=== PATIENT | female | born 1985 | race Caucasian/White ===

== ENCOUNTER 2022-09-28 14:37 | Emergency (ER) | payer BC ==
[2022-09-28 15:31] LABS: Urine Blood Trace-intact (Negative); Urine Glucose Negative (Negative); Urine Protein Negative (Negative); Urine Specific Gravity 1.025 (1.005-1.030); Urine pH 5.5 (5.0-7.0)
[2022-09-28] MEDS ORDERED: NA CHLORIDE 0.9% 1,000 ML ONE (15:33)
[2022-09-28 15:34] LABS: Absolute Lymphocytes (CBC) 2.5 K/uL (0.7-4.9); Hematocrit 37.3 % (36.0-45.0); Lymphocytes % 22.4 % (15.3-44.8); MCV 93.6 fL (80-100); MPV 8.7 fL (7.6-11.3); RBC Red Blood Cell Count 3.99 M/uL (3.86-4.86)
[2022-09-28 15:46] LABS: Albumin 4.3 g/dL (3.4-5.0); Bilirubin Total 0.4 mg/dL (0.2-1.0); Potassium 3.9 mmol/L (3.5-5.1); Protein, Total 7.4 g/dL (6.4-8.2)
[2022-09-28 15:46] LABS: Urine Bacteria None Seen /HPF (<20); Urine Mucus Slight /HPF (None Seen); Urine RBC <5 /HPF (None Seen)
--- NOTE | 2022-09-28 16:58 | RAD REPORT ---
EXAM DESCRIPTION: US - Abdomen Exam Limited - 09/28/2022 4:19 pm CLINICAL HISTORY: ABD PAIN COMPARISON: ABDOMINAL EXAM LIMITED dated 07/21/2008 FINDINGS: No gallstones, sludge or other abnormalities within the gallbladder lumen. Partially fille d gallbladder shows no wall thickening or pericholecystic fluid. No common duct stone or biliary tree dilatation identified. Mild dilatation of the right renal pelvis is seen in the partially evaluated kidney. IMPRESSION: Normal gallbladder and biliary tree ultrasound. Possible mild hydronephrosis the right kidney.
--- NOTE | 2022-09-28 17:17 | RAD REPORT ---
EXAM DESCRIPTION: CT - Stone Protocol - 09/28/2022 4:59 pm CLINICAL HISTORY: hydro COMPARISON: No comparisons TECHNIQUE: Axial 3 mm thick images were obtained without oral or IV contrast. The [id number] span s the entirety of the system including uppermost abdomen and lung bases. All CT scans are performed using dose optimization technique as appropriate and may include automated exposure control or mA/KV adjustment according to patient size. FINDINGS: No hydronephrosis is present and no obstructing ureteral calculi. A punctate 2 mm calcific ation is present in the region of the pelvic inlet but not at the expected pathway of the left ureter . There is no history indicating left renal colic pain in this is probably not ureteral in location. No pelvic floor phleboliths present. No suspicious renal masses. Isodense masses and pyelonephritis a re not excluded on a stone protocol CT scan. No significant adrenal finding. No urinary bladder suspi cious finding. Uterus and ovaries show no suspicious findings. Ovarian detail is limited due to the a butting on opacified isodense small bowel. Imaged portions of the liver, spleen and pancreas show no suspicious findings on non-contrast imaging . No gallbladder or biliary tree abnormality identified. No suspicious bowel findings. No hernia, mass or bulky lymphadenopathy noted. No free air, free fluid or inflammatory stranding. No significant bony abnormality. IMPRESSION: Noncontrast CT abdomen and pelvis imaging showing no acute or TRAFFIC SIGNAL SUPERVISOR MAINTENANCE finding. Isodense masses and pyelonephritis are not excluded on stone protocol technique. No acute GI process or other abnormality is a source for pain.
--- NOTE | 2022-09-28 17:59 | EDPHYS ---
Physician Documentation [facility] Name: Violet Rodriguez Age: 37 yrs Sex: Female : 1985 Arrival Date: 09/28/2022 Time: 14:41 Bed 4 Private MD: ED Physician Dipesh Doyle HPI: 09/28 15:15 This 37 yrs old Female presents to ER via Ambulatory with complaints of Abdominal Pain, snw Flank Pain, Back Pain. 15:15 The patient presents with abdominal pain in the right upper quadrant. Onset: The snw symptoms/episode began/occurred acutely. The symptoms radiate to right back. The symptoms are described as crampy, intermittent. Severity of pain: At its worst the pain was moderate severe in the emergency department the pain has improved. The patient has not experienced similar symptoms in the past. The patient has been recently seen by a physician: the patient's primary care provider, had leukopenia per report. Historical: - Allergies: 15:03 No Known Allergies; kr3 - Immunization history:: Adult Immunizations not up to date. - Social history:: Smoking status: Patient denies any tobacco usage or history of. ROS: 15:14 Constitutional: Negative for fever, chills, and weight loss, Eyes: Negative for injury, snw pain, redness, and discharge, ENT: Negative for injury, pain, and discharge, Neck: Negative for injury, pain, and swelling, Cardiovascular: Negative for chest pain, palpitations, and edema, Respiratory: Negative for shortness of breath, cough, wheezing, and pleuritic chest pain, : Negative for injury, bleeding, discharge, and swelling, MS/Extremity: Negative for injury and deformity, Skin: Negative for injury, rash, and discoloration, Neuro: Negative for headache, weakness, numbness, tingling, and seizure, Psych: Negative for depression, anxiety, suicide ideation, homicidal ideation, and hallucinations. 15:14 Abdomen/GI: Positive for abdominal pain, abdominal cramps. 15:14 Back: Positive for radiated pain, of the right mid back. Exam: 15:14 Constitutional: This is a well developed, well nourished patient who is awake, alert, snw and in no acute distress. Head/Face: Normocephalic, atraumatic. Eyes: Pupils equal round and reactive to light, extra-ocular motions intact. Lids and lashes normal. Conjunctiva and sclera are non-icteric and not injected. Cornea within normal limits. Periorbital areas with no swelling, redness, or edema. ENT: Nares patent. No nasal discharge, no septal abnormalities noted. Tympanic membranes are normal and external auditory canals are clear. Oropharynx with no redness, swelling, or masses, exudates, or evidence of obstruction, uvula midline. Mucous membranes moist. Neck: Trachea midline, no thyromegaly or masses palpated, and no cervical lymphadenopathy. Supple, full range of motion without nuchal rigidity, or vertebral point tenderness. No Meningismus. Chest/axilla: Normal chest wall appearance and motion. Nontender with no deformity. No lesions are appreciated. Cardiovascular: Regular rate and rhythm with a normal S1 and S2. No gallops, murmurs, or rubs. Normal PMI, no JVD. No pulse deficits. Respiratory: Lungs have equal breath sounds bilaterally, clear to auscultation and percussion. No rales, rhonchi or wheezes noted. No increased work of breathing, no retractions or nasal flaring. Abdomen/GI: Soft, non-tender, with normal bowel sounds. No distension or tympany. No guarding or rebound. No evidence of tenderness throughout. Back: No spinal tenderness. No costovertebral tenderness. Full range of motion. Skin: Warm, dry with normal turgor. Normal color with no rashes, no lesions, and no evidence of cellulitis. MS/ Extremity: Pulses equal, no cyanosis. Neurovascular intact. Full, normal range of motion. Neuro: Awake and alert, GCS 15, oriented to person, place, time, and situation. Cranial nerves II-XII grossly intact. Motor strength 5/5 in all extremities. Sensory grossly intact. Cerebellar exam normal. Normal gait. Psych: Awake, alert, with orientation to person, place and time. Behavior, mood, and affect are within normal limits. Vital Signs: 14:57 BP 127 / 88; Pulse 99; Resp 18; Temp 99.0(TE); Pulse Ox 100% on R/A; Weight 52.16 kg; kr3 Height 5 ft. 9 in. (175.26 cm); Pain 1/10; 16:00 BP 124 / 80; Pulse 86; Resp 16; Pulse Ox 99% ; hb 18:15 BP 124 / 62; Pulse 73; Resp 15; Pulse Ox 99% ; Pain 4/10; jl7 14:57 Body Mass Index 16.98 (52.16 kg, 175.26 cm) kr3 MDM: 15:08 Patient medically screened. snw 18:02 Data reviewed: vital signs, nurses notes. Data interpreted: Pulse oximetry: on room snw air. Counseling: I had a detailed discussion with the patient and/or guardian regarding: the historical points, exam findings, and any diagnostic results supporting the discharge/admit diagnosis, the presence of at least one elevated blood pressure reading (>120/80) during this emergency department visit, lab results, radiology results, the need for outpatient follow up, to return to the emergency department if symptoms worsen or persist or if there are any questions or concerns that arise at home. Response to treatment: the patient's symptoms have mildly improved after treatment. Special discussion: Based on the patient's Hx, exam, and Dx evaluation, there is no indication for emergent surgery or inpatient Tx. It is understood by the patient/guardian that if the Sx's persist or worsen they need to return immediately for re-evaluation. Based on the history and exam findings, there is no indication for further emergent testing or inpatient evaluation. I discussed with the patient/guardian the need to see the primary care provider for further evaluation of the symptoms. 09/28 14:52 Order name: Urine Culture [facility] 09/28 14:52 Order name: Urine Microscopic Only; Complete Time: 15:46 w 09/28 15:13 Order name: [place] Screen Profile; Complete Time: 17:10 w 09/28 15:13 Order name: CBC with Diff; Complete Time: 15:39 sn09/28 15:13 Order name: CMP; Complete Time: 15:58 snw 09/28 15:13 Order name: Lipase; Complete Time: 15:58 w 09/28 14:52 Order name: Urine Dipstick-Ancillary (obtain specimen); Complete Time: 15:35 sn09/28 14:52 Order name: Urine Test (obtain specimen); Complete Time: 15:41 snw 09/28 15:13 Order name: US Abdomen Limited; Complete Time: 17:10 snw 09/28 15:13 Order name: IV Saline Lock; Complete Time: 15:35 snw 09/28 15:31 Order name: Urine Dipstick-Ancillary; Complete Time: 15:32 EDMS 09/28 16:13 Order name: CT Stone Protocol; Complete Time: 17:20 snw 09/28 15:13 Order name: Labs collected and sent; Complete Time: 15:35 snw Administered Medications: 15:36 Drug: NS 0.9% 1000 ml Route: IV; Rate: 125 ml/hr; Site: left antecubital; hb 18:29 Follow up: Response: No adverse reaction; IV Status: Completed infusion; Order to jl7 discontinue infusion 18:10 Drug: Ketorolac 15 mg Route: IVP; Site: left antecubital; jl7 Disposition: 18:59 Co-signature as Attending Physician, Dipesh Doyle MD. rn Disposition Summary: 09/28/22 17:59 Discharge Ordered Location: Home snw Condition: Stable snw Diagnosis - Abdominal pain, Generalized snw Followup: snw - With: Emergency Department - When: As needed - Reason: Worsening of condition Followup: snw - With: Private Physician - When: 1 week - Reason: Recheck today's complaints, Continuance of care, Re-evaluation by your physician Discharge Instructions: - Discharge Summary Sheet snw - Abdominal Pain, Adult snw - Colic snw - Flank Pain, Adult snw Forms: - Medication Reconciliation Form snw - Thank You Letter snw - Antibiotic Education snw - Prescription Opioid Use snw - Work release form snw Prescriptions: - Mobic 7.5 mg Oral Tablet - take 1 tablet by ORAL route once daily take with food; 20 tablet; Refills: 0, snw Product Selection Permitted - promethazine 25 mg Oral Tablet - take 1 tablet by ORAL route every 6 hours As needed; 20 tablet; Refills: 0, snw Product Selection Permitted - dicyclomine 20 mg Oral Tablet - take 1 tablet by ORAL route 3 times per day; 30 tablet; Refills: 0, Product snw Selection Permitted Signatures: Dispatcher [employer] EDCO Kimberlee Jovel FNP-C BUILDING CONSULTANT-Csnw Dipesh Doyle MD MD rn Baxter, Heather, RN RN Claudine Flaherty RN RN jl7 Dulce Mas RN RN kr3
--- NOTE | 2022-09-28 17:59 | ER ---
Nurse's Notes [facility] Name: Violet Rodriguez Age: 37 yrs Sex: Female : 1985 Arrival Date: 09/28/2022 Time: 14:41 Bed 4 Private MD: Diagnosis: Abdominal pain, Generalized Presentation: 09/28 14:57 Chief complaint: Patient states: started having abdominal pain right after kr3 thanksgiving, I have been seen in by PCP and had blood work twice since. On my last blood work my WBC count was low. The pain comes and goes, yesterday was worse than normal. Coronavirus screen: Vaccine status: Patient reports being unvaccinated. Client denies travel out of the [place] in the last 14 days. Ebola Screen: Patient denies travel to an Ebola-affected area in the 21 days before illness onset. Initial Sepsis Screen: Does the patient meet any 2 criteria? No. Patient's initial sepsis screen is negative. Does the patient have a suspected source of infection? No. Patient's initial sepsis screen is negative. Risk Assessment: Do you want to hurt yourself or someone else? Patient reports no desire to harm self or others. Onset of symptoms was August 25, 2022. 14:57 Method Of Arrival: Ambulatory kr3 14:57 Acuity: COLETTE 3 kr3 Triage Assessment: 15:04 General: Appears in no apparent distress. uncomfortable, Behavior is calm, cooperative, kr3 appropriate for age. Pain: Complains of pain in back and abdomen. Historical: - Allergies: 15:03 No Known Allergies; kr3 - Immunization history:: Adult Immunizations not up to date. - Social history:: Smoking status: Patient denies any tobacco usage or history of. Screenin:[facility] ED Fall Risk Assessment (Adult) Score/Fall Risk Level 0 - 2 = Low Risk hb Oriented to surroundings, Maintained a safe environment. Abuse screen: Denies threats or abuse. Denies injuries from another. Nutritional screening: No deficits noted. Tuberculosis screening: No symptoms or risk factors identified. Assessment: 15:36 General: Appears in no apparent distress. Behavior is calm, cooperative. Pain: Pain hb currently is 2 out of 10 on a pain scale. Neuro: Level of Consciousness is awake, alert, obeys commands, Oriented to person, place, time, situation. Cardiovascular: Patient's skin is warm and dry. Respiratory: Respiratory effort is even, unlabored, Respiratory pattern is regular, symmetrical. GI: Reports upper abdominal pain. : No signs and/or symptoms were reported regarding the genitourinary system. EENT: No signs and/or symptoms were reported regarding the EENT system. Derm: Skin is pink, warm \T\ dry. Musculoskeletal: No signs and/or symptoms reported regarding the musculoskeletal system. 16:11 Reassessment: Patient appears in no apparent distress at this time. Patient and/or hb family updated on plan of care and expected duration. Pain level reassessed. Patient is alert, oriented x 3, equal unlabored respirations, skin warm/dry/pink. 18:15 Reassessment: Patient appears in no apparent distress at this time. Patient and/or jl7 family updated on plan of care and expected duration. Pain level reassessed. Patient is alert, oriented x 3, equal unlabored respirations, skin warm/dry/pink. Patient states symptoms have improved. Vital Signs: 14:57 BP 127 / 88; Pulse 99; Resp 18; Temp 99.0(TE); Pulse Ox 100% on R/A; Weight 52.16 kg; kr3 Height 5 ft. 9 in. (175.26 cm); Pain 1/10; 16:00 BP 124 / 80; Pulse 86; Resp 16; Pulse Ox 99% ; hb 18:15 BP 124 / 62; Pulse 73; Resp 15; Pulse Ox 99% ; Pain 4/10; jl7 14:57 Body Mass Index 16.98 (52.16 kg, 175.26 cm) kr3 ED Course: 14:41 Patient arrived in ED. rg4 14:43 Kimberlee Jovel FNP-C is PHCP. snw 14:43 Dipesh Doyle MD is Attending Physician. snw 15:03 Triage completed. kr3 15:05 Patient placed in an exam room, on a stretcher. kr3 15:36 Patient has correct armband on for positive identification. hb 15:36 Inserted saline lock: 22 gauge in left antecubital area, using aseptic technique. Blood hb collected. 15:41 Dayna Roach, RN is Primary Nurse. hb 16:21 US Abdomen Limited In Process Unspecified. EDMS 17:01 CT Stone Protocol In Process Unspecified. EDMS 18:25 No provider procedures requiring assistance completed. IV discontinued, intact, jl7 bleeding controlled, No redness/swelling at site. Pressure dressing applied. Administered Medications: 15:36 Drug: NS 0.9% 1000 ml Route: IV; Rate: 125 ml/hr; Site: left antecubital; hb 18:29 Follow up: Response: No adverse reaction; IV Status: Completed infusion; Order to jl7 discontinue infusion 18:10 Drug: Ketorolac 15 mg Route: IVP; Site: left antecubital; jl7 Medication: 15:36 VIS not applicable for this client. hb Outcome: 17:59 Discharge ordered by . daryl 18:25 Discharged to home ambulatory. jl7 18:25 Condition: stable 18:25 Discharge instructions given to patient, Instructed on discharge instructions, follow up and referral plans. medication usage, Demonstrated understanding of instructions, follow-up care, medications, Prescriptions given X 3. 18:58 Patient left the ED. jl7 Signatures: Dispatcher [employer] EDID Kimberlee Jovel, DIFFERENTIAL SPECIALIST-C DIFFERENTIAL SPECIALIST-Csnw Dayna Roach, RN RN Edyta Cervantes rg4 Claudine Dominguez RN RN jl7 Dulce Mas RN RN kr3
[2022-09-28] MEDS ORDERED: KETOROLAC 30 MG/ML INJ ONE (18:22)
[2022-09-28 19:04] VITALS: TEMP 99
[2022-09-28 19:06] VITALS: O2SAT 99
[2022-09-28 19:07] VITALS: BP 124/62
== END 2022-09-28 18:58 | disposition home or self-care (01) ==
LOC: ER 14:37
DX: R10.84 Generalized abdominal pain (principal)
CPT/HCPCS: 96361; 87088; 85025; 87086; 36415; 86308; 83690; 80053; 76377; 74176; 76705; 96374; 99284; J7030; 81003; 81015

== ENCOUNTER 2022-10-31 15:52 | Emergency (ER) | payer BC ==
[2022-10-31 16:22] LABS: Urine Blood Trace-intact (Negative); Urine Glucose Negative (Negative); Urine Protein Negative (Negative); Urine pH 6.5 (5.0-7.0)
[2022-10-31 16:26] LABS: Specific Gravity 1.005 (1.005-1.030); Urine Bilirubin NEGATIVE (Negative); Urine Blood Negative (Negative); Urine Clarity Clear (Clear); Urine Color Colorless (Yellow); Urine Glucose NEGATIVE (Negative); Urine Protein NEGATIVE (Negative); Urine Urobilinogen Normal (Normal)
--- OUTSIDE RECORDS SUMMARY | 2022-10-31 16:27 | XMS REPORT | Continuity of Care Document ---
:1985 Author Organization [facility] t Address [address] [place] [address] Dr. Ellis [address] [place] [id number] Care Team Providers Name Role Phone Olvin Attending Clinician Unavailable Olvin Admitting Clinician Unavailable Payers Payer Name Policy Type Policy Number Effective Date Expiration Date S ource [place] [id number] 2017 00:00:00 [place] Problems This patient has no known problems. Allergies, Adverse Reactions, Alerts This patient has no known allergies or adverse reactions. Medications This patient has no known medications. Procedures This patient has no known procedures. Encounters Start End Encounter Admission Attending Care Care Encounter Source Date/Time Date/Time Type Type Clinicians Facility Department ID 2022-10-28 2022-10-28 Outpatient [facility] [id number] 00:00:00 00:00:00 [id number] [facility] Results This patient has no known results.
[2022-10-31 17:18] LABS: Hematocrit 34.9 % (36.0-45.0); MCV 94.4 fL (80-100); MPV 8.6 fL (7.6-11.3)
[2022-10-31 17:26] LABS: Potassium 4.2 mmol/L (3.5-5.1)
[2022-10-31] MEDS ORDERED: KETOROLAC 30 MG/ML INJ ONE (18:04)
--- NOTE | 2022-10-31 18:19 | RAD REPORT ---
EXAM DESCRIPTION: CT - Abdomen Pelvis W Contrast - 10/31/2022 5:52 pm CLINICAL HISTORY: Abdominal pain/flank pain COMPARISON: September 28, 2022 TECHNIQUE: Computed axial tomography of the abdomen pelvis was obtained. 100 cc Isovue-300 was admin istered intravenously. Oral contrast was not requested which limits evaluation of bowel and appendix All CT scans are performed using dose optimization technique as appropriate and may include automated exposure control or mA/KV adjustment according to patient size. FINDINGS: Liver, spleen, pancreas, adrenals and left kidney are unremarkable. Right extrarenal pelvis is present. Appendix is not clearly seen. Fluid within nondilated bowel 3.3 centimeter complex cyst left ovary. No significant free fluid. Cervix appears somewhat bulky. IMPRESSION: 3.3 centimeter complex cyst left ovary likely benign. No significant free fluid Cervix appears somewhat bulky. Often this is a normal finding. Nonemergent pelvic ultrasound is recom mended.
--- NOTE | 2022-10-31 19:00 | EDPHYS ---
Physician Documentation [facility] Name: Violet Rodriguez Age: 37 yrs Sex: Female : 1985 Arrival Date: 10/31/2022 Time: 15:54 Bed DX3 Private MD: GIANLUCA MULLINS ED Physician Dipesh Doyle HPI: 10/31 16:28 This 37 yrs old Female presents to ER via Ambulatory with complaints of Flank Pain, sb4 Possible Kidney Stone. 16:28 Patient was here 1 month ago with similar complaints that have not resolved. She states sb4 she continues to have right sided abdominal pain and flank pain despite taking all medications as prescribed and drinking plenty of fluids. She has an appointment to see a urologist in 1 week but could not wait that long. She denies any fevers, UTI symptoms, or jayme blood in urine.. 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 - Social history:: Smoking status: Patient denies any tobacco usage or history of. ROS: 16:28 Constitutional: Negative for fever, chills, and weight loss, Eyes: Negative for injury, sb4 pain, redness, and discharge, ENT: Negative for injury, pain, and discharge, Neck: Negative for injury, pain, and swelling, Cardiovascular: Negative for chest pain, palpitations, and edema, Respiratory: Negative for shortness of breath, cough, wheezing, and pleuritic chest pain, MS/Extremity: Negative for injury and deformity, Skin: Negative for injury, rash, and discoloration. 16:28 Abdomen/GI: Positive for abdominal pain, nausea, Negative for vomiting, diarrhea, constipation. 16:28 : Positive for flank pain, hematuria, Negative for pelvic pain, difficulty urinating, bladder incontinence. Exam: 16:28 Constitutional: This is a well developed, well nourished patient who is awake, alert, sb4 and in no acute distress. Head/Face: Normocephalic, atraumatic. Eyes: Extra-ocular motions intact. Periorbital areas with no swelling, redness, or edema. Cardiovascular: Regular rate and rhythm with a normal S1 and S2. Respiratory: Lungs have equal breath sounds bilaterally, clear to auscultation and percussion. No rales, rhonchi or wheezes noted. No increased work of breathing, no retractions or nasal flaring. Abdomen/GI: Soft, non-tender, no distension. Skin: Warm, dry with normal turgor. Normal color with no rashes, no lesions, and no evidence of cellulitis. MS/ Extremity: Pulses equal, no cyanosis. Neurovascular intact. Full, normal range of motion. Vital Signs: 16:02 BP 145 / 92; Pulse 95; Resp 18; Temp 98; Pulse Ox 100% ; Weight 54.43 kg; Height 5 ft. ko1 9 in. (175.26 cm); Pain 5/10; 19:19 BP 113 / 75; Pulse 81; Resp 18; Temp 98; Pulse Ox 98% on R/A; Pain 3/10; pf1 16:02 Body Mass Index 17.72 (54.43 kg, 175.26 cm) ko1 MDM: 16:25 Patient medically screened. sb4 16:28 Differential diagnosis: nephrolithiasis, pyelonephritis, UTI, appendicitis. sb4 17:02 Transition of care: After a detail discussion of the patient's case, care is sb4 transferred to Mickey NAPOLES. 18:55 Data reviewed: vital signs, nurses notes, lab test result(s), radiologic studies, CT cp scan. 18:55 I considered the following discharge prescriptions or medication management in the emergency department Medications were administered in the Emergency Department. See MAR. Test considered but Not performed: Other Details HIDA scan. Counseling: I had a detailed discussion with the patient and/or guardian regarding: the historical points, exam findings, and any diagnostic results supporting the discharge/admit diagnosis, lab results, radiology results, the need for outpatient follow up, a family practitioner, a corporate services manager, to return to the emergency department if symptoms worsen or persist or if there are any questions or concerns that arise at home. Response to treatment: the patient's symptoms have markedly improved after treatment, and as a result, I will discharge patient. Special discussion: Based on the patient's Hx, exam, and Dx evaluation, there is no indication for emergent surgery or inpatient Tx. It is understood by the patient/guardian that if the Sx's persist or worsen they need to return immediately for re-evaluation. 10/31 16:10 Order name: Urinalysis; Complete Time: 16:32 sb4 10/31 18:08 Interpretation: Reviewed. cp 10/31 16:21 Order name: Urine --Ancillary (enter results); Complete Time: 16:32 eb 10/31 16:22 Order name: Urine Dipstick-Ancillary; Complete Time: 16:32 EDMS 10/31 18:08 Interpretation: Normal except: UBLD Trace-intact. cp 10/31 16:27 Order name: CBC w/o diff; Complete Time: 17:37 sb4 10/31 18:08 Interpretation: Normal except: RBC 3.70; HGB 11.8; HCT 34.9. cp 10/31 16:27 Order name: BMP; Complete Time: 17:37 sb4 10/31 18:35 Interpretation: Reviewed. cp 10/31 16:27 Order name: Magnesium; Complete Time: 17:37 sb4 10/31 16:10 Order name: Urine Dipstick-Ancillary (obtain specimen); Complete Time: 16:17 sb4 10/31 16:27 Order name: IV Start; Complete Time: 17:10 sb4 10/31 16:27 Order name: CT Abd/Pelvis - IV Contrast Only; Complete Time: 18:26 sb4 Administered Medications: 18:02 Drug: Ketorolac 30 mg Route: IVP; Site: left antecubital; ld1 19:00 Follow up: Response: No adverse reaction; Marked relief of symptoms; Pain is decreased; pf1 RASS: Alert and Calm (0) Disposition: 11/01 07:29 Co-signature as Attending Physician, Dipesh Doyle MD I reviewed the patient's care rn provided by the Advanced Practice Provider and agree with the diagnosis and treatment plan. Disposition Summary: 10/31/22 18:59 Discharge Ordered Location: Home cp Problem: an ongoing problem cp Symptoms: have improved cp Condition: Stable cp Diagnosis - Abdominal pain, unspecified cp Followup: cp - With: Private Physician - When: 2 - 3 days - Reason: Recheck today's complaints Discharge Instructions: - Discharge Summary Sheet cp - Abdominal Pain, Adult cp Forms: - Medication Reconciliation Form cp - Thank You Letter cp - Antibiotic Education cp - Prescription Opioid Use cp Prescriptions: - Diclofenac Sodium 75 mg Oral tablet,delayed release (DR/EC) - take 1 tablet by ORAL route 2 times per day; 20 tablet; Refills: 0, Product cp Selection Permitted - Zofran 4 mg Oral Tablet - take 1 tablet by ORAL route every 12 hours As needed; 20 tablet; Refills: 0, cp Product Selection Permitted Signatures: Dispatcher [employer] Dipesh Wilkins MD MD rn Mickey Hartley PA PA cp Dibbern, Lauren, RN RN ld1 Angy Go RN RN Vera Johnson PA-C PAManjit sb4 Cathy parks RN pf1
--- NOTE | 2022-10-31 19:00 | ER ---
Nurse's Notes [facility] Name: Violet Rodriguez Age: 37 yrs Sex: Female : 1985 Arrival Date: 10/31/2022 Time: 15:54 Bed DX3 Private MD: GIANLUCA MULLINS Diagnosis: Abdominal pain, unspecified Presentation: 10/31 16:02 Chief complaint: Patient states: right side of abdomen and into the back. Coronavirus ko1 screen: At this time, the client does not indicate any symptoms associated with coronavirus-19. Ebola Screen: No symptoms or risks identified at this time. Initial Sepsis Screen: Does the patient meet any 2 criteria? No. Patient's initial sepsis screen is negative. Does the patient have a suspected source of infection? No. Patient's initial sepsis screen is negative. Risk Assessment: Do you want to hurt yourself or someone else? Patient reports no desire to harm self or others. Onset of symptoms was October 31, 2022. 16:02 Method Of Arrival: Ambulatory ko1 16:02 Acuity: COLETTE 3 ko1 Triage Assessment: 16:05 General: Appears in no apparent distress. uncomfortable, Behavior is calm, cooperative, ko1 appropriate for age. Pain: Complains of pain in posterior aspect of right lateral abdomen, anterior aspect of right lateral abdomen and right upper quadrant. GI: No deficits noted. 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 - Social history:: Smoking status: Patient denies any tobacco usage or history of. Screenin:18 [facility] ED Fall Risk Assessment (Adult) History of falling in the last 3 months, pf1 including since admission No falls in past 3 months (0 pts) Confusion or Disorientation No (0 pts) Intoxicated or Sedated No (0 pts) Impaired Gait No (0 pts) Mobility Assist Device Used No (0 pt) Altered Elimination No (0 pt) Score/Fall Risk Level 0 - 2 = Low Risk Oriented to surroundings, Maintained a safe environment, Educated pt \T\ family on fall prevention, incl call for assistance when getting out of bed, Assessed \T\ reinforced patient's understanding of fall precautions, Provided non-skid footwear, Hourly rounding (assess needs \T\ fall precautionary measures) done, Used ambulatory aids as needed (educated on \T\ assisted with), Used gait belt as appropriate. Abuse screen: Denies threats or abuse. Nutritional screening: No deficits noted. Tuberculosis screening: No symptoms or risk factors identified. Assessment: 19:00 General: see triage assessment. pf1 19:00 GI: Bowel sounds present X 4 quads. pf1 Vital Signs: 16:02 BP 145 / 92; Pulse 95; Resp 18; Temp 98; Pulse Ox 100% ; Weight 54.43 kg; Height 5 ft. ko1 9 in. (175.26 cm); Pain 5/10; 19:19 BP 113 / 75; Pulse 81; Resp 18; Temp 98; Pulse Ox 98% on R/A; Pain 3/10; pf1 16:02 Body Mass Index 17.72 (54.43 kg, 175.26 cm) ko1 ED Course: 15:54 Patient arrived in ED. as 15:54 GIANLUCA MULLINS is Private Physician. as 15:54 Vera Souza PA-C is PHCP. sb4 15:54 Dipesh Doyle MD is Attending Physician. sb4 16:05 Triage completed. ko1 16:05 Arm band placed on left wrist. ko1 16:06 Patient placed in waiting room, Patient notified of wait time. ko1 16:17 Urinalysis Sent. ko1 16:50 PHCP role handed off by Vera Souza PA-C cp 16:50 Mickey Hartley PA is PHCP. cp 17:09 Inserted saline lock: 20 gauge in left antecubital area, using aseptic technique. Blood zm collected. 17:10 Magnesium Sent. zm 17:10 BMP Sent. zm 17:10 CBC w/o diff Sent. zm 17:54 CT Abd/Pelvis - IV Contrast Only In Process Unspecified. EDMS 19:00 Patient has correct armband on for positive identification. pf1 19:00 No provider procedures requiring assistance completed. pf1 19:18 IV discontinued, intact, bleeding controlled, No redness/swelling at site. Pressure pf1 dressing applied. Administered Medications: 18:02 Drug: Ketorolac 30 mg Route: IVP; Site: left antecubital; ld1 19:00 Follow up: Response: No adverse reaction; Marked relief of symptoms; Pain is decreased; pf1 RASS: Alert and Calm (0) Medication: 19:00 VIS not applicable for this client. pf1 Outcome: 18:59 Discharge ordered by . cp 19:19 Discharged to home ambulatory. pf1 19:19 Condition: stable 19:19 Condition: stable 19:19 Discharge instructions given to patient, Instructed on discharge instructions, follow up and referral plans. medication usage, Demonstrated understanding of instructions, follow-up care, medications, Prescriptions given X 2. 19:19 Patient left the ED. pf1 Signatures: Dispatcher [employer] EDMS Sushma Jeffers Corey, PA PA cp Dibbern, Lauren, RN RN ld1 Carmen Jeffers Kathy, RN RN vitor1 Vera Souza PA-C PACathy Mclean RN RN pf1
[2022-10-31 19:24] VITALS: TEMP 98
[2022-10-31 19:25] VITALS: BP 113/75; O2SAT 98
== END 2022-10-31 19:19 | disposition home or self-care (01) ==
LOC: ER 15:52
DX: R10.9 Unspecified abdominal pain (principal)
CPT/HCPCS: 80048; 36415; 83735; 81025; 81003 ×2; 85027; 74177; 96374; 99284; Q9967

== ENCOUNTER 2022-11-26 16:01 | Observation (INO) | payer BC ==
[2022-11-26 17:06] LABS: SARS-CoV-2 Antigen Rapid Res Negative (Negative)
--- OUTSIDE RECORDS SUMMARY | 2022-11-26 18:17 | XMS REPORT | Continuity of Care Document ---
:1985 Author Organization [facility] t Address [address] [place] [id number] Care Team Providers Name Role Phone Rusty_Kimberly Attending Clinician Unavailable Rusty_M Admitting Clinician Unavailable Payers Payer Name Policy Type Policy Number Effective Date Expiration Date S our[place] [id number] 2017 00:00:00 [place] Problems This patient has no known problems. Allergies, Adverse Reactions, Alerts This patient has no known allergies or adverse reactions. Medications This patient has no known medications. Procedures This patient has no known procedures. Encounters Start End Encounter Admission Attending Care Care Encounter Source Date/Time Date/Time Type Type Clinicians Facility Department ID 2022-11-03 2022-11-03 [facility] [address] 00:00:00 00:00:00 [id number] [facility] 2022-10-28 2022-10-28 Out[facility] [address] 00:00:00 00:00:00 [id number] [facility] Results This patient has no known results.
[2022-11-26] MEDS ORDERED: DIPHENHYDRAMINE 25 MG TAB/CAP PO PRN (19:03)
[2022-11-26] MEDS ORDERED: ACETAMINOPHEN 325 MG TABLET PO PRN (19:03)
[2022-11-26] MEDS ORDERED: POLYETHYL GLY 3350 17 GM/DOSE PO PRN (19:03)
[2022-11-26] MEDS ORDERED: ONDANSETRON 4 MG (ODT) TAB PO PRN (19:03)
[2022-11-26] MEDS ORDERED: LOPERAMIDE HCL 2 MG CAPSULE PO PRN (19:03)
[2022-11-26] MEDS ORDERED: NACHLORIDE 0.45% 1,000 ML IV SCH (20:00)
[2022-11-26 20:31] VITALS: BMI 17.9
[2022-11-27] MEDS: CEFOXITIN 1 GM in NA CHLORIDE 0.9% 50 ML IVPB SCH ×2 (02:06→11:57)
[2022-11-27 04:31] LABS: Absolute Lymphocytes (CBC) 2.4 K/uL (0.7-4.9); Hematocrit 31.9 % (36.0-45.0); MCV 93.4 fL (80-100); MPV 8.6 fL (7.6-11.3); RBC Red Blood Cell Count 3.42 M/uL (3.86-4.86)
[2022-11-27 04:44] LABS: Protime INR 1.18
[2022-11-27 05:09] LABS: Albumin 3.7 g/dL (3.4-5.0); Bilirubin Direct 0.1 mg/dL (0-0.2); Bilirubin Total 0.5 mg/dL (0.2-1.0); Magnesium 2.2 mg/dL (1.6-2.4); Phosphorus 3.3 mg/dL (2.5-4.9); Potassium 4.3 mmol/L (3.5-5.1); Protein, Total 6.6 g/dL (6.4-8.2); Thyroid Stimulating Hormone 3.27 uIU/mL (0.358-3.740)
[2022-11-27] MEDS ORDERED: INFLUENZA VACCINE (for 6+ mo) 0.5 ML DOSE IMVAC ONE (08:00)
--- NOTE | 2022-11-27 09:01 | RAD REPORT ---
EXAM DESCRIPTION: MRI - Cholangiogram - 11/27/2022 7:47 am CLINICAL HISTORY: abdominal pain COMPARISON: Abdomen Exam Limited dated 09/28/2022; Abdomen Pelvis W Contrast dated 10/31/2022 FINDINGS: Three-dimensional MRCP was performed using maximum intensity projection reconstruction on the same work station. No intrahepatic biliary tree dilatation is seen. The common bile duct is normal caliber without evide nce of retained stone, stricture or mass. The pancreatic duct is not pathologically dilated. The gallbladder is unremarkable. Limited T2 sequences through the abdomen demonstrates no bulky adenopathy, significant free fluid or abscess. IMPRESSION: Negative MR cholangiogram. No biliary duct dilatation. Negative for choledocholithiasis.
--- NOTE | 2022-11-27 11:48 | RAD REPORT ---
EXAM DESCRIPTION: NM - Hepatobiliary System W/ Ph - 11/27/2022 11:40 am CLINICAL HISTORY: abdominal pain COMPARISON: No comparisons TECHNIQUE: The patient was administered approximately 7.8 mCi Tc99m Choletec. Imaging of the right u pper quadrant was performed initially for up to 60 minutes. Gallbladder ejection fraction determination was then performed utilizing synthetic 1.1 Mgm CCK over a slow 30 minute infusion. FINDINGS: Normal hepatic uptake and excretion with appropriate clearance of background blood pool ac tivity. Delayed small bowel activity. Gallbladder visualizes within normal time limits. The calculated ejection fraction is 21 % (normal gr eater than 35%). Subjective pain reported by the patient: Pre-procedure - no symptoms During or subsequent to synthetic CCK infusion - no symptoms IMPRESSION: Delayed small bowel activity and low ejection fraction could reflect chronic cholecystit is or biliary dyskinesia. Ejection fraction is 21% (normal greater than 35%). The patient reported no symptoms either before or after the CCK.
[2022-11-27 12:35] VITALS: BP 118/56; TEMP 98.3
== END 2022-11-27 15:30 | disposition home or self-care (01) ==
LOC: 4TH 18:14
PROVIDERS: ADMIT Internal Medicine; ATTEND Internal Medicine
DX: R10.9 Unspecified abdominal pain (principal); M54.50 Low back pain, unspecified; R68.83 Chills (without fever); Z20.822 Contact with and (suspected) exposure to COVID-19
CPT/HCPCS: 36415; 74181; 78227; 80048; 80076; 82306; 82607; 82652; 83735; 84100; 84443; 85025; 85610; 85730; 87811; A9537; G0378; G0379; J0694; J2805